=== PATIENT | male | born 1960 | race Caucasian/White ===

== ENCOUNTER 2018-02-17 14:40 | Emergency (ER) | payer BC ==
--- NOTE | 2018-02-17 16:24 | ED PDOC ---
Syncope/Near Syncope/Dizziness Time Seen by Provider: 02/17/18 15:11 Chief Complaint (Nursing): Syncope Chief Complaint (Provider): Syncope History Per: Patient History/Exam Limitations: no limitations Onset/Duration Of Symptoms: Days (x 4) Current Symptoms Are (Timing): Still Present Number Of Syncopal Episodes: 1 Additional Complaint(s): 57 year old amle with a history of asthma and hypertrophic cardiomyopathy presents to the ED complaining of syncope and a fever. For the last several days, the patient reports worsening fever, vomiting, diarrhea and cough. There was a small amount of blood streaked in his vomit today without reoccurrence. The last two days he has begin to feel increasingly dizzy and today he actually fainted after his episode of vomiting. He takes metoprolol and benicar regularly. Denies sick contacts and recent travel. PMD: Dr. Maldonado ([place]) Past Medical History Reviewed: Historical Data, Nursing Documentation, Vital Signs Vital Signs: Last Vital Signs Temp 97.9 F 02/17/18 14:48 Pulse 99 H 02/17/18 14:48 Resp 20 02/17/18 14:48 BP 71/53 L 02/17/18 14:48 Pulse Ox 95 02/17/18 14:48 - Medical History PMH: Asthma Denies: Chronic Kidney Disease - Surgical History Surgical History: No Surg Hx - Family History Family History: States: Unknown Family Hx - Immunization History Hx Tetanus Toxoid Vaccination: No Hx Influenza Vaccination: No Hx Pneumococcal Vaccination: No - Home Medications Home Medications: Ambulatory Orders Medication Instructions Recorded Amoxicillin/Clavulanate [Augmentin 1 tab PO BID #20 tab 02/17/18 875 MG-125 MG] - Allergies Allergies/Adverse Reactions: Allergies Allergy/AdvReac Type Severity Reaction Status Date / Time shellfish derived Allergy RASH Verified 02/17/18 14:45 Review of Systems ROS Statement: Except As Marked, All Systems Reviewed And Found Negative Constitutional: Positive for: Fever Respiratory: Positive for: Cough Gastrointestinal: Positive for: Nausea, Vomiting, Diarrhea Neurological: Positive for: Dizziness, Other (syncope) Physical Exam - Reviewed Nursing Documentation Reviewed: Yes Vital Signs Reviewed: Yes - Physical Exam Appears: Positive for: No Acute Distress (appears weak) Head Exam: Positive for: ATRAUMATIC, NORMAL INSPECTION, NORMOCEPHALIC Skin: Positive for: Diaphoresis Eye Exam: Positive for: EOMI, Normal appearance, PERRL Neck: Positive for: Normal, Painless ROM, Supple Cardiovascular/Chest: Positive for: Regular Rate, Rhythm Respiratory: Positive for: Normal Breath Sounds Pulses-Carotid (L): 2+ Pulses-Carotid (R): 2+ Gastrointestinal/Abdominal: Positive for: Normal Exam, Soft. Negative for: Tenderness Extremity: Positive for: Normal ROM (upper and lower extremities). Negative for: Deformity Neurologic/Psych: Positive for: Alert, Oriented. Negative for: Motor/Sensory Deficits - Laboratory Results Result Diagrams: 02/17/18 17:20 02/17/18 17:20 - ECG O2 Sat by Pulse Oximetry: 95 (RA) Pulse Ox Interpretation: Normal Medical Decision Making Medical Decision Makin:35 MDM: workup for infectious process Source is likely pulmonary vs abdominal Labs, chest x-ray, Tylenol for fever, IV fluids, EKG and flu swab Will consider adding imaging if there are any abnormalities Reassess Scribe Attestation: Documented by Yani Samuels acting as a scribe for Elizabeth Lainez MD Provider Scribe Attestation: All medical record entries made by the Scribe were at my direction and personally dictated by me. I have reviewed the chart and agree that the record accurately reflects my personal performance of the history, physical exam, medical decision making, and the department course for this patient. I have also personally directed, reviewed, and agree with the discharge instructions and disposition. 2255 Pt with improved BP. Pt now ambulatory without feeling dizzy. Pt urinating freely. Improved lactate and additional 2 L of fluids given after lactate shown to have improved. 6L of IV fluids in total given. CT shows sinusitis. Pt given one dose of Augmentin in the ED and Rx for Augmentin. PT to follow up with his PMD and technical applications specialist both next week. Pt tolerating food and water now. Return precautions given. Disposition - Clinical Impression Clinical Impression: Sinusitis, Dehydration, moderate - Disposition Disposition: Routine/Home Disposition Time: 22:48 Condition: IMPROVED Additional Instructions: Take antibiotics as prescribed. Increase fluids intake with water or pedialyte. Increase rest until symptoms resolve. Follow up with primary medical doctor and technical applications specialist in 3 to 5 days. Return to the emergency department if symptoms worsen or if new symptoms develop. Prescriptions: Amoxicillin/Clavulanate [Augmentin 875 MG-125 MG] 1 tab PO BID #20 tab Instructions: Dehydration, Adult (DC), Sinusitis, Adult (DC) Forms: [employer] (Burkinan) Print Language: SLOVENIAN
[2018-02-17 16:44] LABS: VENOUS BLOOD GAS BASE EXCESS -4.6 mmol/L (0.0-2.0); VENOUS BLOOD GAS PCO2 53 mmHg (40-60); VENOUS BLOOD GAS PO2 14 mm/Hg (30-55); VENOUS BLOOD PH 7.25 (7.32-7.43)
[2018-02-17] MEDS: Sodium Chloride 0.9% 1,000 ML IV STA ×5 (16:46→21:42)
--- NOTE | 2018-02-17 17:26 | RAD ---
Date of service: 02/17/2018 HISTORY: cough and fever COMPARISON: No prior. TECHNIQUE: Chest PA and lateral FINDINGS: LUNGS: No active pulmonary disease. PLEURA: No significant pleural effusion identified. No pneumothorax apparent. CARDIOVASCULAR: No aortic atherosclerotic calcification present. Normal cardiac size. No pulmonary vascular congestion. OSSEOUS STRUCTURES: No significant abnormalities. VISUALIZED UPPER ABDOMEN: Normal. OTHER FINDINGS: None. IMPRESSION: No active disease.
[2018-02-17 17:33] LABS: BASO # 0.1 K/uL (0.0-0.2); BASO % 0.4 % (0.0-2.0); HEMOGLOBIN 15.8 g/dL (12.0-18.0); LYMPH % 5.4 % (20.0-40.0); MEAN CELL VOLUME 96.4 fl (80.0-94.0); MEAN CORPUSCULAR HEMOGLOBIN 32.1 pg (27.0-31.0); MEAN CORPUSCULAR HGB CONC 33.3 g/dL (33.0-37.0); MONO # 0.7 K/uL (0.0-0.8); MONO % 4.1 % (0.0-10.0); NEUT # 16.4 K/uL (1.8-7.0); NEUT % 90.1 % (50.0-75.0); PLATELET COUNT 219 K/uL (130-400); RBC 4.91 Mil/uL (4.40-5.90); RED CELL DISTRIBUTION WIDTH 14.2 % (11.5-14.5); WHITE BLOOD COUNT 18.2 K/uL (4.8-10.8)
[2018-02-17 17:45] LABS: ALB/GLOB RATIO 1.2 (1.0-2.1); ALBUMIN 4.3 g/dL (3.5-5.0); CALCIUM 9.2 mg/dL (8.4-10.2)
[2018-02-17 17:48] LABS: INR 1.1; PROTHROMBIN TIME 12.3 Seconds (9.8-13.1)
[2018-02-17 17:50] LABS: PARTIAL THROMBOPLASTIN TIME 31.2 Seconds (25.6-37.1)
[2018-02-17 20:29] LABS: BANDS 3 % (0-2); LYMPHOCYTE 8 % (20-50); MONOCYTE 5 % (0-10); NEUTROPHIL 83 % (42-75); PLATELET ESTIMATE NORMAL (NORMAL); REACTIVE LYMPHOCYTES 1 % (0-0); TOTAL CELLS COUNTED 100; TOXIC GRANULATION PRESENT
[2018-02-17] MEDS ORDERED: Amoxicillin-Clav 875-125 mg Tab PO ONE (20:41)
[2018-02-17] MEDS: Amoxicillin-Clav 875-125 mg Tab PO STA (20:41)
[2018-02-17 21:42] LABS: SQUAMOUS EPITHIAL 1 /hpf (0-5); URINE BACTERIA RARE (<OCC); URINE BILIRUBIN NEGATIVE (NEGATIVE); URINE BLOOD SMALL (NEGATIVE); URINE CLARITY CLOUDY (Clear); URINE COLOR YELLOW (YELLOW); URINE GLUCOSE (UA) NEG (Normal); URINE LEUKOCYTE ESTERASE SMALL Leu/uL (Negative); URINE PROTEIN NEGATIVE (NEGATIVE); URINE UROBILINOGEN 0.2-1.0 mg/dL (0.2-1.0)
[2018-02-17 23:01] VITALS: BP 115/64; PULSE 82; RESP 18; TEMP 98.9
[2018-02-17 23:05] VITALS: O2SAT 95
--- NOTE | 2018-02-18 09:25 | CT ---
Date of service: 02/17/2018 PROCEDURE: CT HEAD WITHOUT CONTRAST. HISTORY: syncope and frontal sinus pressure COMPARISON: None available. TECHNIQUE: Axial computed tomography images were obtained through the head/brain without intravenous contrast. Radiation dose: Total exam DLP = 1093.44 mGy-cm. This CT exam was performed using one or more of the following dose reduction techniques: Automated exposure control, adjustment of the mA and/or kV according to patient size, and/or use of iterative reconstruction technique. FINDINGS: HEMORRHAGE: No intracranial hemorrhage. BRAIN: No mass effect or edema. No atrophy or chronic microvascular ischemic changes. VENTRICLES: Unremarkable. No hydrocephalus. CALVARIUM: Unremarkable. PARANASAL SINUSES: Chronic frontal, ethmoid and bilateral maxillary sinusitis. Postoperative changes of both maxillary sinuses. MASTOID AIR CELLS: Unremarkable as visualized. No inflammatory changes. OTHER FINDINGS: None. IMPRESSION: No intracranial mass, hemorrhage or evidence of acute infarct. Chronic paranasal sinusitis. The preliminary findings for this examination were reported by [facility] at 10:38 p.m. on 02/17/2018. There is concurrence of this report with the preliminary findings.
--- NOTE | 2018-02-18 10:52 | CARD ---
APPROVED REPORT Date of service: 02/17/2018 EKG Measurement Heart [id number] VT [id number] <Conclusion> Normal sinus rhythm Anterolateral infarct, age undetermined Abnormal ECG
== END 2018-02-17 23:01 | disposition home or self-care (01) ==
LOC: H.ER 14:40
DX: R55 Syncope and collapse (principal); J32.9 Chronic sinusitis, unspecified; E86.0 Dehydration
CPT/HCPCS: 70450; 71046; 80053; 81003; 82803; 83605; 83690; 85025; 85610; 85730; 87804; 93005; 96361; 96374; 99285; J2405; J7030